=== PATIENT | male | born 1975 | race Two or more races ===

== ENCOUNTER 2020-08-04 15:38 | Emergency (ER) | payer OTHER ==
[~2020-08-04] VITALS: Ht 162.6 cm; Wt 60.0 kg
[2020-08-04 17:20] VITALS: BP 131/91
== END 2020-08-04 17:20 | disposition home or self-care (01) | DRG 563 ==
LOC: ED 15:38
DX: S46.911A Strain of unspecified muscle, fascia and tendon at shoulder and upper arm level, right arm, initial encounter (principal); X50.0XXA Overexertion from strenuous movement or load, initial encounter; Y93.89 Activity, other specified; Y92.89 Other specified places as the place of occurrence of the external cause; Y99.0 Civilian activity done for income or pay